=== PATIENT | female | born 1960 ===

== ENCOUNTER 2023-03-09 10:14 | Emergency (ER) | payer BC ==
[2023-03-09] MEDS ORDERED: Lidocaine 5% Oint 35.44 GM Tube TOP STA (11:53)
== END 2023-03-09 13:00 | disposition home or self-care (01) ==
LOC: MW.ED 10:14
DX: M25.571 Pain in right ankle and joints of right foot (principal); Z88.1 Allergy status to other antibiotic agents
CPT/HCPCS: 73610-26-RT; 73610-RT; 99283